=== PATIENT | female | born 1955 | race Caucasian/White ===

== ENCOUNTER 2020-02-14 06:32 | Day surgery (SDC) | payer OTHER, BC ==
[2020-02-12 12:20] LABS: Basophils % 0.4 % (0-1.3); Hematocrit 40.8 % (36.0-45.0); Lymphocytes % 26.8 % (15.3-44.8); RBC Red Blood Cell Count 4.24 M/uL (3.86-4.86)
[2020-02-12 12:23] LABS: Urine Appearance CLEAR; Urine Bilirubin NEGATIVE (NEG); Urine Blood 1+ (NEG); Urine Color YELLOW; Urine Glucose NEGATIVE (NEG); Urine Protein NEGATIVE (NEG); Urine Urobilinogen 0.2 mg/dL (0.2-1.0)
[2020-02-12 12:23] LABS: Protime INR 1.15
[2020-02-12 12:37] LABS: Potassium 3.7 mmol/L (3.5-5.1)
[2020-02-12 13:14] LABS: Urine Microscopic Reflex ORDER UMIC
[2020-02-12 13:41] LABS: Urine Bacteria 20-50 /HPF (<20); Urine Culture Reflex Order REFLEXED; Urine RBC <5 /HPF (NONE SEEN)
--- OUTSIDE RECORDS SUMMARY | 2020-02-14 06:34 | XMS REPORT | Continuity of Care Document ---
:1955 Author Organization [facility] t Address [address] [place] [address] Dr. Ray. [address] [place] [address] Care Team Providers Name Role Phone Unknown Attending Clinician Unavailable Pokaro, [place] Main Attending Clinician Unavailable Problems This patient has no known problems. Allergies, Adverse Reactions, Alerts This patient has no known allergies or adverse reactions. Medications This patient has no known medications. Procedures This patient has no known procedures. Encounters Start End Encounter Admission Attending Care Care Encounter Source Date/Time Date/Time Type Type Clinicians Facility Department ID 2020-01-17 2020-01-17 Hospital Unknown, [facility] [id number] 10:14:00 23:59:00 Encounter Attending Flo [id number] [place] [id number] [place] [id number] 2020-01-17 2020-01-17 Paper Cleaner Zahraa Garrett [facility] [id number] 10:14:48 10:29:48 Visit Lab Main Flo [id number] [place] [id number] [facility] [id number] [address] 2019-07-27 2019-07-27 Outpatient [id number] 12:29:00 12:29:00 Saw vasquez [facility] Results This patient has no known results.
[2020-02-14] MEDS ORDERED: Ringers Lactate 1,000 ML IV ONE (06:45)
[2020-02-14] MEDS ORDERED: HEPARIN 5000 UNIT/ML 1 ML VIAL ONE (06:46)
[2020-02-14] MEDS ORDERED: Levofloxacin500mg IV 500 MG/100 ML BAG IV ONE (06:46)
[2020-02-14] MEDS ORDERED: ROCURONIUM 50 MG/5 ML VIAL IV ONE (07:11)
[2020-02-14] MEDS ORDERED: propofoL 200 MG/20 ML VIAL IV ONE (07:11)
[2020-02-14] MEDS ORDERED: dexAMETHasone 10 MG/ML VIAL ONE (07:11)
[2020-02-14] MEDS ORDERED: FENTANYL CITR 250 MCG/5 ML ONE (07:12)
[2020-02-14] MEDS ORDERED: LIDOCAINE 2% MPF 5 ML VIAL ONE (07:12)
[2020-02-14] MEDS ORDERED: ONDANSETRON 4 MG/2 ML VIAL ONE (07:12)
[2020-02-14] MEDS ORDERED: MIDAZOLAM HCL 2 MG/2 ML INJ ONE (07:12)
[2020-02-14] MEDS ORDERED: NA CHLORIDE 0.9% 1,000 ML ONE (07:33)
[2020-02-14] MEDS ORDERED: LIDOCAINE 1% W/EPI 1:100,000 MDV 20 ML VIAL ONE (07:33)
[2020-02-14] MEDS ORDERED: NA CHLORIDE 0.9% 100 ML IV ONE (07:33)
[2020-02-14] MEDS ORDERED: VASOPRESSIN 20 UNIT/ML VIAL ONE (07:33)
[2020-02-14] MEDS ORDERED: CEFAZOLIN/SWI 1gm 1 GM/10 ML SYR ONE (07:46)
[2020-02-14] MEDS ORDERED: GLYCOPYRROLATE 0.2 MG/ML SYR ONE ×2 (08:24→08:49)
[2020-02-14] MEDS ORDERED: NEOSTIGMINE 1 MG/ML -5 ML ONE (08:49)
[2020-02-14 09:52] VITALS: TEMP 97.4
--- NOTE | 2020-02-14 11:31 | OP ---
Date of Procedure: 02/14/2020 Surgeon: Barbie Mar MD Preoperative Diagnoses: Stress urinary incontinence, history of deep venous thrombosis greater than 1 year ago. Postoperative Diagnoses: Stress urinary incontinence, history of deep venous thrombosis greater than 1 year ago. Procedure Performed: Mid urethral sling obturator approach (TVT-O) and cystoscopy. Anesthesia: General. Specimens: No specimens. Complications: No complications. Drains: Flores catheter. Findings: Mid urethral area unremarkable, very minimal anterior wall prolapse, point BA was -2 and p oint C -5. Description Of Procedure: After informed consent was verified, patient was taken back to the OR, dianna ela in supine fashion on the operating table. Heparin subcu was given to the patient preop. She was instructed to hold off on her anticoagulation 36 hours prior to her surgery. Levaquin 500 mg was given to the patient intravenous. The patient was given general anesthesia, then placed in a dorsal lithotomy position using Stan stirrups. SCDs were placed and started. Time-out was done. Lower abdomen, vulva, vagina, and perineum were prepped and draped in a sterile fashion. Flores was placed to drain the bladder and occluded with a Vanessa and retracted superiorly. The mid u rethral area was identified. Two Allis clamps were placed on either side injected with dilute vasopr essin 10 mL. 1 cm incision was made in this area, then held with 2 Allis clamps on the edges and the dissection created towards the ipsilateral shoulder going underneath the inferior pubic ramus into t he obturator space. Once the obturator membrane was perforated, thus a similar dissection was perfor med on the contralateral side and the space was opened up. I then placed the wing guide and then use d the TVT-O spike to pass on the right side first after getting to the inferior aspect of the inferio r pubic ramus, then hugging the ramus. The spike was turned to exit in the medial thigh area below t he gracilis tendon at least 2 cm lateral to the groin fold slightly above the level of the horizontal line dropped at the level of the external urethral meatus. Similar maneuver was performed on the opposite side. The wing guide was placed without any problems retracing the Pap that was created. Then, the spike was passed. The patient was heavy so the arc of the spike appeared to be slightly tighter for the patient to pass, hugging the inferior pubic ramus exited at the level of the medial side below the gracilis tendon. Then once the exit point was made, the spike was held with Vanessa and the plastic dilator was held with the Vanessa and spike removed hilton larly on both sides. Then, the spikes were cut out after placing the Vanessa on the sheath and the sli ng. Then, tensioning of the sling was performed in the mid urethral area with the help of Metzenbaum scissors and after optimal placement, positioning was ensured. The plastic sheaths were pulled out. As soon as the plastic sheath was pulled out, there was a squirt of blood from the left exit point, pressure was applied for 2 minutes directly here and there was no more bleeding from this area and t here was very minimal bleeding from the sling incision. After thorough irrigation and suction was pe rformed, the incision closure with 3-0 Vicryl in a continuous running-lock fashion was done. Flores w as removed, cystoscopy with 17-Cymro sheath, 30-degree lens, normal saline was done. No evidence of any trauma. No injury of the bladder from the sling placement. No other tumors were seen. The ent uriel bladder was reviewed. Both ureteric orifices were unremarkable. Scope was pulled out after drai sivan the bladder. Flores was replaced. Packing was placed in the vagina. Instrument, needle, and sp onge counts were done and were correct at the end of the case. The patient was recovered from the an esthesia in the OR and taken to the PACU in stable condition. Plan is to keep the Flores for 2 hours, then do a voiding trial with retrograde filling 300 mL, make s ure that packing and Flores are out. If there is any bleeding, we will leave the packing in for 24 ho urs and instruct the patient to pull out. No NSAIDs for this patient and she will restart her blood thinner tomorrow evening in 48 hours if there is no bleeding and no other problems. Early ambulation and all the precautions were given to the patient to call with problems. We will watch for any groi n hematoma or bleeding at the end of the case and the patient was recovered. There was no evidence o f any hematoma here. JOSUE/DIANNA Voice ID: [id number] Report ID: [id number]
[2020-02-14 13:58] VITALS: BP 150/65; O2SAT 96
== END 2020-02-14 12:40 | disposition home or self-care (01) ==
LOC: OR 06:32
PROVIDERS: ATTEND Obstetrics & Gynecology
PROC: 0TSD0ZZ Reposition Urethra, Open Approach (ICD-10-PCS; principal; 2020-02-14 07:30)
DX: N39.3 Stress incontinence (female) (male) (principal); N32.81 Overactive bladder; Z11.59 Encounter for screening for other viral diseases; N95.2 Postmenopausal atrophic vaginitis; I10 Essential (primary) hypertension; E78.00 Pure hypercholesterolemia, unspecified; R41.3 Other amnesia; F41.9 Anxiety disorder, unspecified; F32.9 Major depressive disorder, single episode, unspecified; E66.9 Obesity, unspecified; Z68.37 Body mass index [BMI] 37.0-37.9, adult; M19.90 Unspecified osteoarthritis, unspecified site; E07.9 Disorder of thyroid, unspecified; Z87.891 Personal history of nicotine dependence; Z79.01 Long term (current) use of anticoagulants; Z86.718 Personal history of other venous thrombosis and embolism; Z88.0 Allergy status to penicillin; Z90.49 Acquired absence of other specified parts of digestive tract; Z83.6 Family history of other diseases of the respiratory system; Z82.49 Family history of ischemic heart disease and other diseases of the circulatory system
CPT/HCPCS: 87088; 85025; 87086; 80048; 36415; 86900; 86850; 85610; 86901; 85730; 87077; 87186; 57288; U0002; J2704; J1644; J2250; J3010; J1100; J2710; J0690; J7120; J7030; J2405; 81003; 81015

== ENCOUNTER 2023-08-13 06:12 | Day surgery (SDC) | payer OTHER, BC ==
[2023-08-12 15:56] LABS: Absolute Lymphocytes (CBC) 2.1 K/uL (0.7-4.9); Hematocrit 38.2 % (36.0-45.0); MPV 8.3 fL (7.6-11.3); Platelets 198 thou/uL (152-406); RBC Red Blood Cell Count 3.94 M/uL (3.86-4.86)
[2023-08-12 16:00] LABS: Protime INR 1.02
[2023-08-12 16:03] LABS: Potassium 3.8 mEq/L (3.5-5.1)
[2023-08-13] MEDS ORDERED: Ringers Lactate 1,000 ML IV ONE (06:52)
[2023-08-13] MEDS ORDERED: propofoL 200 MG/20 ML VIAL IV ONE (07:12)
[2023-08-13] MEDS ORDERED: LIDOCAINE 1% MPF 5 ML VIAL ONE (07:12)
[2023-08-13] MEDS ORDERED: GLYCOPYRROLATE 0.2 MG/ML SYR ONE (08:52)
[2023-08-13 09:37] VITALS: BP 128/51; TEMP 97.2; O2SAT 97
--- NOTE | 2023-08-13 15:30 | EKG ---
Test Date: 2023-08-12 Test Time: 16:22:01 Dispatcher Maintenance: TORO MEASUREMENT RESULTS: Intervals: Rate: 62 LA: 156 QRSD: 98 QT: 412 QTc: 418 [place]: P: 71 LA: 156 QRS: -46 T: 18 INTERPRETIVE STATEMENTS: Normal sinus rhythm Left anterior fascicular block Nonspecific T wave abnormality Abnormal ECG No previous ECG available for comparison Electronically Signed On 08-13-23 15:27:31 BLADE BENDER FURNACE TENDER by Richard Mir
== END 2023-08-13 09:38 | disposition home or self-care (01) ==
LOC: OR 06:12
PROVIDERS: ATTEND Surgery
PROC: 0DB38ZX Excision of Lower Esophagus, Via Natural or Artificial Opening Endoscopic, Diagnostic (ICD-10-PCS; 2023-08-13)
PROC: 0DB58ZX Excision of Esophagus, Via Natural or Artificial Opening Endoscopic, Diagnostic (ICD-10-PCS; 2023-08-13)
PROC: 0DBH8ZX Excision of Cecum, Via Natural or Artificial Opening Endoscopic, Diagnostic (ICD-10-PCS; 2023-08-13)
PROC: 0DB98ZX Excision of Duodenum, Via Natural or Artificial Opening Endoscopic, Diagnostic (ICD-10-PCS; principal; 2023-08-13 07:30)
PROC: 0DB68ZX Excision of Stomach, Via Natural or Artificial Opening Endoscopic, Diagnostic (ICD-10-PCS; 2023-08-13 07:30)
DX: Z12.11 Encounter for screening for malignant neoplasm of colon (principal); R10.13 Epigastric pain; R10.31 Right lower quadrant pain; R10.12 Left upper quadrant pain; K29.50 Unspecified chronic gastritis without bleeding; D12.0 Benign neoplasm of cecum; K31.1 Adult hypertrophic pyloric stenosis; K21.00 Gastro-esophageal reflux disease with esophagitis, without bleeding; K29.80 Duodenitis without bleeding; K44.9 Diaphragmatic hernia without obstruction or gangrene; K31.7 Polyp of stomach and duodenum
CPT/HCPCS: 93005; 85025; 80048; 36415; 88312; 85610; 88305; 85730; 43239; 45385; J2704; J2001; J7120

== ENCOUNTER 2023-09-10 06:56 | Day surgery (SDC) | payer OTHER, BC ==
[2023-09-10] MEDS ORDERED: Ringers Lactate 1,000 ML IV ONE (07:20)
[2023-09-10] MEDS ORDERED: LIDOCAINE 1% MPF 5 ML VIAL ONE (07:33)
[2023-09-10] MEDS ORDERED: propofoL 200 MG/20 ML VIAL IV ONE (07:33)
[2023-09-10 09:36] VITALS: BP 154/67; TEMP 97.1; O2SAT 99
== END 2023-09-10 09:10 | disposition home or self-care (01) ==
LOC: OR 06:56
PROVIDERS: ATTEND Surgery
PROC: 0DBH8ZX Excision of Cecum, Via Natural or Artificial Opening Endoscopic, Diagnostic (ICD-10-PCS; principal; 2023-09-10 08:00)
DX: Z12.11 Encounter for screening for malignant neoplasm of colon (principal); R10.31 Right lower quadrant pain; K57.30 Diverticulosis of large intestine without perforation or abscess without bleeding; K64.8 Other hemorrhoids; D12.0 Benign neoplasm of cecum
CPT/HCPCS: 45385; 88305; J2704; J2001; J7120; 88304

== ENCOUNTER 2024-03-20 12:09 | Emergency (ER) | payer OTHER, BC ==
[2024-03-20] MEDS ORDERED: methocarbamoL 500 MG TAB ONE (12:58)
[2024-03-20] MEDS ORDERED: KETOROLAC 30 MG/ML INJ ONE (12:58)
--- NOTE | 2024-03-20 13:18 | RAD REPORT ---
EXAM DESCRIPTION: RAD - Foot Right 3 View - 03/20/2024 12:55 pm CLINICAL HISTORY: Right foot pain FINDINGS: No fracture or dislocation is seen Mild lateral subluxation first proximal phalanx Osteoporosis Large calcaneal spurs
--- NOTE | 2024-03-20 13:19 | RAD REPORT ---
EXAM DESCRIPTION: RAD - Ankle Right 3 View - 03/20/2024 12:55 pm CLINICAL HISTORY: Right ankle pain FINDINGS: No fracture or dislocation is seen. Soft tissue swelling Mild osteoarthritis involves the ankle
--- NOTE | 2024-03-20 13:28 | ER ---
Nurse's Notes [facility] Name: Anna Saavedra Age: 69 yrs Sex: Female : 1955 Arrival Date: 03/20/2024 Time: 12:09 Bed 11 Private MD: Diagnosis: Sprain of ankle Presentation: 03/20 12:31 Chief complaint: Patient states: R leg pain and numbness since sitting on it long hb period of time. Coronavirus screen: Client denies travel out of the [place] in the last 14 days. At this time, the client does not indicate any symptoms associated with coronavirus-19. Ebola Screen: Patient denies travel to an Ebola-affected area in the 21 days before illness onset. Initial Sepsis Screen: Does the patient meet any 2 criteria? No. Patient's initial sepsis screen is negative. Does the patient have a suspected source of infection? No. Patient's initial sepsis screen is negative. Risk Assessment: Do you want to hurt yourself or someone else? Patient reports no desire to harm self or others. Onset of symptoms was March 20, 2024. 12:31 Method Of Arrival: Wheelchair hb 12:31 Acuity: BRANDIE 3 hb Triage Assessment: 12:32 General: Appears uncomfortable, Behavior is calm, cooperative, appropriate for age. hb Pain: Complains of pain in right leg Quality of pain is described as aching. Musculoskeletal: Reports pain in right leg. Injury Description: Bruise. Historical: - Allergies: 12:32 PENICILLINS; hb - PMHx: 12:32 Hypothyroidism; Hypertensive disorder; Hypercholesterolemia; hb - Immunization history:: Adult Immunizations up to date. - Infectious Disease History:: Denies. - Social history:: Smoking status: Patient denies any tobacco usage or history of. Screenin:36 [facility] ED Fall Risk Assessment (Adult) History of falling in the last 3 months, ll1 including since admission Yes- physiologic fall (2 pts) Confusion or Disorientation No (0 pts) Intoxicated or Sedated No (0 pts) Impaired Gait Yes (1 pt) Mobility Assist Device Used Yes (1 pt) Altered Elimination No (0 pt) Score/Fall Risk Level 3 or more points = High Risk Maintained a safe environment, Hourly rounding (assess needs \T\ fall precautionary measures) done. Abuse screen: Denies threats or abuse. Nutritional screening: No deficits noted. Tuberculosis screening: No symptoms or risk factors identified. Assessment: 13:10 Reassessment: No changes from previously documented assessment. Patient and/or family ll1 updated on plan of care and expected duration. Pain level reassessed. Patient is alert, oriented x 3, equal unlabored respirations, skin warm/dry/pink. 13:36 Reassessment: No changes from previously documented assessment. Patient and/or family ll1 updated on plan of care and expected duration. Pain level reassessed. Patient is alert, oriented x 3, equal unlabored respirations, skin warm/dry/pink. 13:37 Musculoskeletal: Circulation, motion, and sensation intact. Capillary refill < 3 ll1 seconds, Reports pain in right foot. Vital Signs: 12:34 BP 140 / 63; Pulse 60; Resp 17; Temp 97.2; Pulse Ox 99% ; Weight 109.77 kg; Height 5 hb ft. 3 in. ; Pain 4/10; 13:36 BP 141 / 61; Pulse 61; Resp 17; Pulse Ox 99% ; Pain 2/10; ll1 12:34 Body Mass Index 42.87 (109.77 kg, 160.02 cm) hb 12:34 Pain Scale: Adult hb 13:36 Pain Scale: Adult ll1 ED Course: 12:21 Patient arrived in ED. bn 12:22 Brijesh Chirinos MD is Attending Physician. ec2 12:32 Triage completed. hb 12:32 Arm band placed on. hb 12:57 Foot Right 3 View XRAY In Process Unspecified. EDMS 12:57 Ankle Right 3 View XRAY In Process Unspecified. EDMS 13:37 Patient has correct armband on for positive identification. Bed in low position. ll1 Provided Education on: return for worsening symptoms. Cardiac monitoring not applicable on this patient. 13:37 No provider procedures requiring assistance completed. Patient did not have IV access ll1 during this emergency room visit. Administered Medications: 13:09 Drug: Ketorolac IM 30 mg IM once Route: IM; Site: left vastus lateralis; ll1 13:36 Follow up: Response: No adverse reaction ll1 13:10 Drug: Methocarbamol PO 500 mg PO once Route: PO; ll1 13:35 Follow up: Response: No adverse reaction ll1 Medication: 13:37 VIS not applicable for this client. ll1 Outcome: 13:27 Discharge ordered by . ec2 13:37 Discharged to home via wheelchair, ll1 13:37 Condition: stable 13:37 Discharge instructions given to patient, Instructed on discharge instructions, follow up and referral plans. no driving heavy equipment, medication usage, Demonstrated understanding of instructions, follow-up care, medications, Prescriptions given X 1, 13:37 Patient left the ED. ll1 Signatures: Dispatcher [employer] EDJeaneth Melgoza RN RN Fermin Araujo RN RN ll1 Brijesh Chirinos MD MD ec2 Ashly Lopez, Reg Reg bn
--- NOTE | 2024-03-20 13:28 | EDPHYS ---
Physician Documentation [facility] Name: Anna Saavedra Age: 69 yrs Sex: Female : 1955 Arrival Date: 03/20/2024 Time: 12:09 Bed 11 Private MD: ED Physician Brijesh Chirinos HPI: 03/20 12:36 This 69 yrs old Female presents to ER via Wheelchair with complaints of Foot ec2 Injury, Fall Injury. 12:36 Patient arrives today for evaluation of right ankle pain. Reports that last night her ec2 foot fell asleep, she attempted to ambulate and now has pain in the right ankle. Reports no other falls injuries or trauma. Patient reports pain isolated to the right ankle and foot. . Historical: - Allergies: 12:32 PENICILLINS; hb - PMHx: 12:32 Hypothyroidism; Hypertensive disorder; Hypercholesterolemia; hb - Immunization history:: Adult Immunizations up to date. - Infectious Disease History:: Denies. - Social history:: Smoking status: Patient denies any tobacco usage or history of. ROS: 12:38 Constitutional: as per hpi ec2 Exam: 12:38 Constitutional: GEN: NAD Head: atraumatic Eyes: EOMI Ears: External ears are ec2 normal. CV: regular rate LUNGS: no respiratory distress ABD: non-distended SKIN: no evidence of rashes MSK: Right ankle with trace swelling noted, TTP to the lateral malleolus. Intact distal neurovascular status. NEURO: moves all extremities equally Vital Signs: 12:34 BP 140 / 63; Pulse 60; Resp 17; Temp 97.2; Pulse Ox 99% ; Weight 109.77 kg; Height 5 hb ft. 3 in. ; Pain 4/10; 13:36 BP 141 / 61; Pulse 61; Resp 17; Pulse Ox 99% ; Pain 2/10; ll1 12:34 Body Mass Index 42.87 (109.77 kg, 160.02 cm) hb 12:34 Pain Scale: Adult hb 13:36 Pain Scale: Adult ll1 MDM: 12:25 Patient medically screened. ec2 12:38 Data reviewed: vital signs. ED course: Patient arrives today for right ankle and foot ec2 pain. Examination remarkable for MSK findings as above. Will obtain radiograph of the right ankle and foot. Differential includes contusion, sprain, fracture.. 13:26 ED course: Foot x-ray shows mild lateral subluxation of the first proximal phalanx, ec2 otherwise no bony fracture, soft tissue swelling noted consistent with ankle sprain. Will discharge home, placed in Ramiro wrap and have the patient follow-up outpatient expectantly. Return precautions given. . 03/20 12:34 Order name: Foot Right 3 View XRAY; Complete Time: 13:26 ec2 03/20 12:34 Order name: Ankle Right 3 View XRAY; Complete Time: 13:26 ec2 03/20 12:34 Order name: Ramiro Wrap; Complete Time: 13:35 ec2 Administered Medications: 13:09 Drug: Ketorolac IM 30 mg IM once Route: IM; Site: left vastus lateralis; ll1 13:36 Follow up: Response: No adverse reaction ll1 13:10 Drug: Methocarbamol PO 500 mg PO once Route: PO; ll1 13:35 Follow up: Response: No adverse reaction ll1 Disposition Summary: 03/20/24 13:27 Discharge Ordered Notes: Location: Home ec2 Condition: Stable ec2 Diagnosis - Sprain of ankle ec2 Followup: ec2 - With: Private Physician - When: - Reason: Re-evaluation by your physician Discharge Instructions: - Discharge Summary Sheet ec2 - Ankle Sprain, [id number] ec2 Forms: - Medication Reconciliation Form ec2 - Antibiotic Education ec2 - Prescription Opioid Use ec2 - Patient Portal Instructions ec2 - Leadership Thank You Letter ec2 Prescriptions: - methocarbamol 500 mg Oral tablet - take 1 tablet ORAL route 4 times per day; 15 tablet; Refills: 0, Product ec2 Selection Permitted Signatures: Dispatcher [employer] EDJeaneth Melgoza RN RN hb Lewis, Lynsay, RN RN ll1 Brijesh Chirinos MD MD ec2 Corrections: (The following items were deleted from the chart) 12:34 12:34 Foot Right 3 View+RAD.RAD.BRZ ordered. EDMS EDMS 12:34 12:34 Ankle Right 3 View+RAD.RAD.BRZ ordered. EDMS EDMS
[2024-03-20 15:55] VITALS: TEMP 97.2; O2SAT 99
[2024-03-20 15:57] VITALS: BP 141/61
== END 2024-03-20 13:37 | disposition home or self-care (01) ==
LOC: ER 12:09
DX: S93.401A Sprain of unspecified ligament of right ankle, initial encounter (principal)
CPT/HCPCS: 96372; 99284

== ENCOUNTER 2024-08-29 22:39 | Emergency (ER) | payer OTHER, BC ==
[2024-08-29] MEDS ORDERED: ONDANSETRON 4 MG (ODT) TAB ONE (23:11)
[2024-08-29] MEDS ORDERED: LIDOCAINE 1% MPF 5 ML VIAL ONE (23:11)
[2024-08-29] MEDS ORDERED: BUPIVACAINE 0.5% PF 10 ML VIAL ONE (23:11)
[2024-08-29] MEDS ORDERED: HYDROCODONE/APAP 7.5/325 MG TAB ONE (23:11)
[2024-08-29] MEDS ORDERED: TDAP (DIPHTH,PERTUSS(ACELL),TET VAC) 0.5 ML VIAL IMVAC ONE (23:12)
--- NOTE | 2024-08-30 00:36 | ER ---
Nurse's Notes [facility] Name: Anna Saavedra Age: 69 yrs Sex: Female : 1955 Arrival Date: 08/29/2024 Time: 22:39 Bed 13 Private MD: Diagnosis: Laceration without foreign body of left index finger with damage to nail Presentation: 08/29 22:57 Chief complaint: Patient states: cut left index finger with quality assurance assistant knife, went through vc1 the nail, did not feel it hit bone. Coronavirus screen: Client denies travel out of the [place] in the last 14 days. At this time, the client does not indicate any symptoms associated with coronavirus-19. Ebola Screen: Patient negative for fever greater than or equal to 101.5 degrees Fahrenheit, and additional compatible Ebola Virus Disease symptoms Patient denies exposure to infectious person. Patient denies travel to an Ebola-affected area in the 21 days before illness onset. No symptoms or risks identified at this time. Initial Sepsis Screen: Does the patient meet any 2 criteria? No. Patient's initial sepsis screen is negative. Does the patient have a suspected source of infection? No. Patient's initial sepsis screen is negative. Risk Assessment: Do you want to hurt yourself or someone else? Patient reports no desire to harm self or others. Onset of symptoms was August 29, 2024. Care prior to arrival: None. Activity prior to arrival: None. 22:57 Method Of Arrival: Ambulatory vc1 22:57 Acuity: BRANDIE 3 vc1 Historical: - Allergies: 22:59 PENICILLINS; vc1 - PMHx: 22:59 Hypercholesterolemia; Hypertensive disorder; Hypothyroidism; vc1 - PSHx: 22:59 None; vc1 - Immunization history:: Client reports having NOT received the Covid vaccine. Last tetanus immunization: unknown, Flu vaccine is not up to date. - Infectious Disease History:: Denies. - Social history:: Smoking status: Patient denies any tobacco usage or history of. Screenin:00 [facility] ED Fall Risk Assessment (Adult) History of falling in the last 3 months, vc1 including since admission No falls in past 3 months (0 pts) Confusion or Disorientation No (0 pts) Intoxicated or Sedated No (0 pts) Impaired Gait No (0 pts) Mobility Assist Device Used No (0 pt) Altered Elimination No (0 pt) Score/Fall Risk Level 0 - 2 = Low Risk Oriented to surroundings, Maintained a safe environment, Educated pt \T\ family on fall prevention, incl call for assistance when getting out of bed. Abuse screen: Denies threats or abuse. Nutritional screening: No deficits noted. Tuberculosis screening: No symptoms or risk factors identified. Assessment: 23:20 Reassessment: Patient and/or family updated on plan of care and expected duration. Pain br2 level reassessed. Patient is alert, oriented x 3, equal unlabored respirations, skin warm/dry/pink. General: Appears uncomfortable, Behavior is calm, cooperative. Pain: Complains of pain in palmar aspect of distal phalanx of left index finger Pain does not radiate. Pain currently is 5 out of 10 on a pain scale. Neuro: Park Agitation-Sedation Scale (RASS): 0 - Alert and Calm Level of Consciousness is awake, alert, obeys commands, Oriented to person, place, time, situation. Musculoskeletal: Capillary refill < 3 seconds, Range of motion: intact in all extremities. Vital Signs: 22:48 BP 169 / 87; Pulse 77; Resp 18; Temp 98.3(O); Pulse Ox 100% on R/A; Weight 110.68 kg; oe Height 5 ft. 5 in. ; 22:48 Body Mass Index 40.60 (110.68 kg, 165.1 cm) oe ED Course: 22:40 Patient arrived in ED. gm2 22:47 Kilo Armstrong PA is PHCP. cp 22:47 Jamie Pascal MD is Attending Physician. cp 22:59 Triage completed. vc1 23:00 Arm band placed on right wrist. vc1 23:00 Patient has correct armband on for positive identification. Bed in low position. Call vc1 light in reach. youth nutritional monitor on. Pulse ox on. NIBP on. 23:05 Rosa M Langston RN is Primary Nurse. br2 23:36 Finger-Thumb Left In Process Unspecified. EDMS 08/30 00:45 Assist provider with laceration repair on left hand using sutures. Set up tray. br2 Performed by Kilo CANELA Dressed with Adaptic, COBAN Patient tolerated well. 00:53 Patient did not have IV access during this emergency room visit. br2 Administered Medications: 08/29 23:17 Drug: Lidocaine Infiltration (1 %) 5 ml 5 ml Infiltration once; to bedside Volume: 5 br2 ml; Route: Infiltration; 08/30 00:30 Follow up: Response: No adverse reaction br2 08/29 23:17 Drug: Bupivacaine Infiltration (0.5 %) 10 ml 10 ml Infiltration once Volume: 10 ml; br2 Route: Infiltration; 08/30 00:30 Follow up: Response: No adverse reaction br2 08/29 23:17 Drug: Ondansetron PO 4 mg PO once Route: PO; br2 08/30 00:30 Follow up: Response: No adverse reaction br2 08/29 23:17 Drug: Hydrocodone-Acetaminophen PO (7.5 mg-325 mg) 1 tabs PO once; RASS on ADMIN: br2 Combtv4, Very Agttd3, Agttd2, Rstlss1, AlertClm0, Drwsy-1, Lt Sdtn-2, Mod Sdtn-3, Dp Sdtn-4, UnArsble-5 Route: PO; 08/30 00:23 Follow up: Response: No adverse reaction br2 08/29 23:18 Drug: Boostrix Tdap IM 0.5 ml IM once; as a single dose Route: IM; Site: right gluteus; br2 08/30 00:30 Follow up: Response: (VIS) Vaccine information sheet provided today. Questions and/or br2 concerns addressed. VIS edition date: Mar 21, 2021.; No adverse reaction Medication: 00:53 Vaccine Information Statement (VIS) provided today. Questions and/or concerns br2 addressed. VIS edition date: March 21, 2021. Outcome: 00:35 Discharge ordered by MD. jalloh 00:53 Discharged to home ambulatory, br2 00:53 Condition: good 00:53 Discharge instructions given to patient, Instructed on discharge instructions, Demonstrated understanding of instructions, follow-up care, medications, wound care, Prescriptions given X 2, 00:53 Patient left the ED. br2 Signatures: Dispatcher [employer] EDMS Kilo Armstrong PA PA cp Espinosa, Orlando oe Calcote, Vanessa, RN RN vc1 Ariana Tobias gm2 Rosa M Langston RN RN br2 Corrections: (The following items were deleted from the chart) 03:24 01:57 Patient left the ED. br2 br2
--- NOTE | 2024-08-30 00:36 | EDPHYS ---
Physician Documentation [facility] Name: Anna Saavedra Age: 69 yrs Sex: Female : 1955 Arrival Date: 08/29/2024 Time: 22:39 Bed 13 Private MD: ED Physician Jamie Pascal HPI: 08/29 23:10 This 69 yrs old Female presents to ER via Ambulatory with complaints of Finger Injury - cp laceration. 23:10 The patient or guardian complains of a laceration, clean. cp 23:10 The complaints affect the distal phalanx of left index finger. 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 Onset: The symptoms/episode began/occurred just prior to arrival. Treatment prior to arrival includes: pressure dressing. Associated signs and symptoms: Pertinent positives: active bleeding, Pertinent negatives: decreased range of motion, numbness. Historical: - Allergies: 22:59 PENICILLINS; vc1 - PMHx: 22:59 Hypercholesterolemia; Hypertensive disorder; Hypothyroidism; vc1 - PSHx: 22:59 None; vc1 - Immunization history:: Client reports having NOT received the Covid vaccine. Last tetanus immunization: unknown, Flu vaccine is not up to date. - Infectious Disease History:: Denies. - Social history:: Smoking status: Patient denies any tobacco usage or history of. ROS: 23:15 MS/extremity: Positive for laceration, of the distal phalanx left index finger, cp 23:15 Constitutional: Negative for fever, cp 23:15 Neuro: Negative for numbness, weakness, 23:15 All other systems are negative, Exam: 23:20 Constitutional: The patient appears in no acute distress, alert, awake, well developed, cp well nourished, obese, uncomfortable, 23:20 Head/Face: Normocephalic, atraumatic. cp 23:20 Chest/axilla: Inspection: normal, 23:20 Cardiovascular: Rate: normal, 23:20 Respiratory: the patient does not display signs of respiratory distress, Respirations: normal, no use of accessory muscles, no retractions, labored breathing, is not present, 23:20 Abdomen/GI: Exam negative for discomfort, distension, guarding, Inspection: abdomen appears normal, 23:20 Musculoskeletal/extremity: Extremities: noted in the distal phalanx radial side of left index finger: pain, laceration that extends through nail, ROM: full active range of motion, in the left index finger, Perfusion: the extremity is normally perfused throughout, Sensation intact. Vital Signs: 22:48 BP 169 / 87; Pulse 77; Resp 18; Temp 98.3(O); Pulse Ox 100% on R/A; Weight 110.68 kg; oe Height 5 ft. 5 in. ; 22:48 Body Mass Index 40.60 (110.68 kg, 165.1 cm) oe Laceration: 08/30 00:35 Wound Repair of 2cm ( 0.8in ) subcutaneous with extension through nail laceration to cp distal phalanx radial side of left index finger. Linear shaped.. moderate bleeding. Distal neuro/vascular/tendon intact. Anesthesia: Digital block administered with 8 mls of Lido/Marcaine. Wound prep: Moderate cleansing by me. Skin closed with 4 5-0 Prolene using interrupted sutures and sterile technique. Dressed with Bacitracin. Patient tolerated well. MDM: 08/29 23:30 Differential diagnosis: dislocation, open fracture, simple laceration, avulsion of skin.cp 08/30 00:35 Medical Screening Exam initiated 00:35 Data reviewed: vital signs, nurses notes, radiologic studies, plain films, and as a cp result, I will discharge patient. 00:35 I considered the following discharge prescriptions or medication management in the emergency department Medications were administered in the Emergency Department. See OCT. 00:35 Care significantly affected by the following chronic conditions: Hypertension, Obesity. cp Counseling: I had a detailed discussion with the patient and/or guardian regarding the historical points, exam findings, and any diagnostic results supporting the discharge/admit diagnosis, radiology results, the need for outpatient follow up, a family practitioner, to return to the emergency department if symptoms worsen or persist or if there are any questions or concerns that arise at home. Response to treatment: the patient's symptoms have markedly improved after treatment, and as a result, I will discharge patient. 08/29 23:36 Order name: Finger-Thumb Left EDMS 08/29 23:02 Order name: Dressing - Wound cp 08/29 23:02 Order name: Gloves, Sterile; Complete Time: 23:18 cp 08/29 23:02 Order name: Setup Suture Tray; Complete Time: 23:18 cp 08/30 00:31 Order name: Wound dressing; Complete Time: 03:26 cp Administered Medications: 08/29 23:17 Drug: Lidocaine Infiltration (1 %) 5 ml 5 ml Infiltration once; to bedside Volume: 5 br2 ml; Route: Infiltration; 08/30 00:30 Follow up: Response: No adverse reaction br2 08/29 23:17 Drug: Bupivacaine Infiltration (0.5 %) 10 ml 10 ml Infiltration once Volume: 10 ml; br2 Route: Infiltration; 08/30 00:30 Follow up: Response: No adverse reaction br2 08/29 23:17 Drug: Ondansetron PO 4 mg PO once Route: PO; br2 08/30 00:30 Follow up: Response: No adverse reaction br2 08/29 23:17 Drug: Hydrocodone-Acetaminophen PO (7.5 mg-325 mg) 1 tabs PO once; RASS on ADMIN: br2 Combtv4, Very Agttd3, Agttd2, Rstlss1, AlertClm0, Drwsy-1, Lt Sdtn-2, Mod Sdtn-3, Dp Sdtn-4, UnArsble-5 Route: PO; 08/30 00:23 Follow up: Response: No adverse reaction br2 08/29 23:18 Drug: Boostrix Tdap IM 0.5 ml IM once; as a single dose Route: IM; Site: right gluteus; br2 08/30 00:30 Follow up: Response: (VIS) Vaccine information sheet provided today. Questions and/or br2 concerns addressed. VIS edition date: Mar 21, 2021.; No adverse reaction Disposition: 08/31 00:02 Chart complete. cp Disposition Summary: 08/30/24 00:35 Discharge Ordered Notes: Location: Home cp Problem: new cp Symptoms: have improved cp Condition: Stable cp Diagnosis - Laceration without foreign body of left index finger with damage to nail cp Followup: cp - With: Private Physician - When: 10 - 14 days - Reason: Staple/Suture removal Discharge Instructions: - Discharge Summary Sheet cp - Laceration Care, Adult cp Forms: - Medication Reconciliation Form cp - Antibiotic Education cp - Prescription Opioid Use cp - Patient Portal Instructions cp - Leadership Thank You Letter cp Prescriptions: - Cephalexin 500 mg Oral Capsule - take 1 capsule ORAL route every 8 hours for 10 days; 30 capsule; Refills: 0, cp Product Selection Permitted - ondansetron 8 mg Oral Tablet,disintegrating - take 1 tablet ORAL route every 12 hours; 20 tablet; Refills: 0, Product cp Selection Permitted Addendum: 07:08 Co-signature as Attending Physician, Jamie Pascal MD I agree with the assessment s p4 and plan of care. I reviewed the patient's care provided by the Advanced Practice Provider and agree with the diagnosis and treatment plan. Signatures: Dispatcher [employer] EDMS Kilo Armstrong PA PA cp Lizzy Trujillo RN RN vc1 Jamie Pascal MD MD sp4 Rosa M Langston RN RN br2 Corrections: (The following items were deleted from the chart) 08/29 23:36 23:02 Finger-Thumb Right+RAD.RAD.BRZ ordered. EDMA EDMS 08/30 22:52 22:51 MS/extremity: Positive for laceration, of the distal phalanx left index finger, cpcp 08/31 00:00 08/30 01:00 Wound Repair of 2cm ( 0.8in ) subcutaneous with extension through nail cp laceration to distal phalanx radial side of left index finger. Linear shaped.. moderate bleeding. Distal neuro/vascular/tendon intact. Anesthesia: Digital block administered with 8 mls of Lido/Marcaine. Wound prep: Moderate cleansing by me. Skin closed with 4 5-0 Prolene using interrupted sutures and sterile technique. Dressed with Bacitracin. Patient tolerated well. cp
--- NOTE | 2024-08-30 06:32 | RAD REPORT ---
EXAM: XR Left Fingers, 2 or More Views CLINICAL HISTORY: The patient is 69 years old and is Female; laceration TECHNIQUE: Frontal, lateral and oblique views of the fingers of the left hand. COMPARISON: No relevant prior studies available. FINDINGS: BONES/JOINTS: The bones are osteopenic. Degenerative change with interphalangeal joint space narr owing is present. No acute fracture. No dislocation. SOFT TISSUES: Unremarkable. No radiopaque foreign body. IMPRESSION: No acute findings in the fingers of the left hand. Electronically signed by: Kerry Ervin MD 08/29/2024 11:53 PM [facility] Due to temporary technical issues with the PACS/Tistagames reporting system, reports are being donna d by the in-house radiologist without review as a courtesy to ensure prompt reporting the interpreting radiologist is fully responsible for the content of the report. Transcribed Date/Time: 08/30/2024 6:32 AM
[2024-09-01 01:53] VITALS: BP 169/87; TEMP 98.3; O2SAT 100
== END 2024-08-30 01:57 | disposition home or self-care (01) ==
LOC: ER 22:39
PROC: 0JQK0ZZ Repair Left Hand Subcutaneous Tissue and Fascia, Open Approach (ICD-10-PCS; principal; 2024-08-30)
DX: S61.311A Laceration without foreign body of left index finger with damage to nail, initial encounter (principal); I10 Essential (primary) hypertension; E03.9 Hypothyroidism, unspecified; E78.00 Pure hypercholesterolemia, unspecified; W26.0XXA Contact with knife, initial encounter; Y93.9 Activity, unspecified; Y92.010 Kitchen of single-family (private) house as the place of occurrence of the external cause; Z88.0 Allergy status to penicillin; Z23 Encounter for immunization
CPT/HCPCS: 73140; 96372; 99285; 12001; Q0162; J2003

== ENCOUNTER 2024-12-08 20:14 | Emergency (ER) | payer OTHER, BC ==
[2024-12-08] MEDS ORDERED: LIDOCAINE 1% 20 ML MDV ONE (20:53)
[2024-12-08] MEDS ORDERED: ONDANSETRON 4 MG (ODT) TAB ONE (20:58)
[2024-12-08] MEDS ORDERED: LIDOCAINE 2% W/EPI 1:200,000 MPF 20 ML VIAL IM ONE (21:45)
--- NOTE | 2024-12-08 22:08 | EDPHYS ---
Physician Documentation [facility] Name: Anna Saavedra Age: 69 yrs Sex: Female : 1955 Arrival Date: 12/08/2024 Time: 20:14 Bed 8 Private MD: ED Physician Earl Lau HPI: 12/08 23:46 This 69 yrs old Female presents to ER via Ambulatory with complaints of Toe dr5 Injury. 23:46 Onset: The symptoms/episode began/occurred acutely. 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 Patient states she is on blood thinners which is likely Xarelto. Historical: - Allergies: 20:27 PENICILLINS; dd2 - PMHx: 20:27 Hypercholesterolemia; Hypertensive disorder; Hypothyroidism; dd2 - PSHx: 20:27 Cholecystectomy; Tonsillectomy; dd2 - Immunization history:: Adult Immunizations up to date, Last tetanus immunization: up to date. - Infectious Disease History:: Denies. - Social history:: Smoking status: Patient/guardian denies using tobacco, the patient reports quitting approximately 7 years ago. ROS: 23:46 Constitutional: as per hpi dr5 Exam: 23:46 Constitutional: As per HPI dr5 23:46 Constitutional: The patient appears in no acute distress, 23:46 Head/face: Exam is negative for acute changes, 12/09 00:13 Neck: Trachea midline, no thyromegaly or masses palpated, and no cervical dr5 lymphadenopathy. Supple, full range of motion without nuchal rigidity, or vertebral point tenderness. No Meningismus. Chest/axilla: Normal chest wall appearance and motion. Nontender with no deformity. No lesions are appreciated. Cardiovascular: Regular rate and rhythm with a normal S1 and S2. Normal PMI, no JVD. No pulse deficits. Respiratory: Lungs have equal breath sounds bilaterally, clear to auscultation. No rales, rhonchi or wheezes noted. No increased work of breathing, no retractions or nasal flaring. Back: No spinal tenderness. No costovertebral tenderness. Full range of motion. Skin: 2cm linear laceration noted to great toe on right foot Neuro: Awake and alert, GCS 15, oriented to person, place, time, and situation. Cranial nerves II-XII grossly intact. Motor strength 5/5 in all extremities. Sensory grossly intact. Cerebellar exam normal. Normal gait. Vital Signs: 12/08 20:20 BP 191 / 71; Pulse 58; Resp 16; Temp 98.4(O); Pulse Ox 99% on R/A; Weight 112.04 kg; dd2 Height 5 ft. 5 in. ; Pain 6/10; 22:30 BP 169 / 70; Pulse 57; Resp 16 S; Pulse Ox 99% on R/A; ha1 20:20 Body Mass Index 41.10 (112.04 kg, 165.1 cm) dd2 20:20 Pain Scale: Adult dd2 Laceration: 12/09 00:13 Wound Repair of 2cm ( 0.8in ) subcutaneous laceration to right first toe. Linear dr5 shaped.. Distal neuro/vascular/tendon intact. Anesthesia: Local anesthetic administered with 1 mls of 1% lidocaine w/ Epi. Wound prep: Simple cleansing by me. Skin closed with 3 4-0 Prolene using simple sutures and sterile technique. Dressed with non-adherent dressing. Patient tolerated well. MDM: 12/08 20:20 Medical Screening Exam initiated dr5 12/09 00:13 Differential diagnosis: abrasion, fracture, laceration. Data reviewed: vital signs, dr5 nurses notes. I considered the following discharge prescriptions or medication management in the emergency department Medications were administered in the Emergency Department. See MAR. Care significantly affected by the following chronic conditions: HTN, Hyperlipidemia, Hypothyroidism. Care significantly affected by the following Social Determinants of Health: Poor access to healthcare and/or lack of insurance, Poor access to transportation, Problems related to employment. Counseling: I had a detailed discussion with the patient and/or guardian regarding the historical points, exam findings, and any diagnostic results supporting the discharge/admit diagnosis, the presence of at least one elevated blood pressure reading (>120/80) during this emergency department visit, the need for outpatient follow up, for definitive care, a family practitioner, to return to the emergency department if symptoms worsen or persist or if there are any questions or concerns that arise at home. ED course: Patient refused x-ray. Placed 3 sutures to help with bleeding. Well-approximated wound after sutures. Will have patient follow-up with primary care doctor and have sutures removed in 10 to 14 days. All questions answered. Bleeding controlled. 12/08 20:29 Order name: Dressing - Wound; Complete Time: 22:24 dr5 12/08 20:29 Order name: Setup Suture Tray; Complete Time: 21:06 dr5 Administered Medications: 12/08 21:06 Drug: Ondansetron Oral Disintegrating Tablet Oral Disintegrating Tablet 4 mg PO once ha1 Route: PO; 22:24 Follow up: Response: No adverse reaction; Marked relief of symptoms ha1 22:00 Drug: Lidocaine-Epinephrine Infiltration -1%: (1:100,000) 20 ml 20 ml Infiltration ha1 once; to bedside {Note: administered by care provider .} Volume: 20 ml; Route: Infiltration; 22:24 Follow up: Response: No adverse reaction ha1 Disposition: 12/09 02:35 I was immediately available on-site in the Emergency Department for consultation in the ms3 care of the patient. Disposition Summary: 12/08/24 22:08 Discharge Ordered Notes: Location: Home dr5 Condition: Stable dr5 Diagnosis - Laceration without foreign body of right great toe without damage to nail dr5 Followup: dr5 - With: Emergency Department - When: As needed - Reason: Worsening of condition Followup: dr5 - With: Private Physician - When: 10 - 14 days - Reason: Recheck today's complaints, Continuance of care, Re-evaluation by your physician Discharge Instructions: - Discharge Summary Sheet dr5 - Laceration Care, Adult dr5 Forms: - Medication Reconciliation Form dr5 - Patient Portal Instructions dr5 - Leadership Thank You Letter dr5 Signatures: Earl Lau DO DO ms3 Yasmine Escobedo RN RN ha1 VILLA MCGHEE RN RN dd2 Mitul Vicente, SHOT MAN-C SHOT MAN-Cdr5
--- NOTE | 2024-12-08 22:08 | ER ---
Nurse's Notes [facility] Name: Anna Saavedra Age: 69 yrs Sex: Female : 1955 Arrival Date: 12/08/2024 Time: 20:14 Bed 8 Private MD: Diagnosis: Laceration without foreign body of right great toe without damage to nail Presentation: 12/08 20:20 Chief complaint: Patient states: WAS CUTTING FABRIC AND DROPPED A ROTARY SAW ON HER RT dd2 GREAT TOE. PT REPORTS TAKING XARELTO. Coronavirus screen: At this time, the client does not indicate any symptoms associated with coronavirus-19. Ebola Screen: No symptoms or risks identified at this time. Initial Sepsis Screen: Does the patient meet any 2 criteria? No. Patient's initial sepsis screen is negative. Does the patient have a suspected source of infection? No. Patient's initial sepsis screen is negative. Risk Assessment: Do you want to hurt yourself or someone else? Patient reports no desire to harm self or others. Onset of symptoms was December 08, 2024. 20:20 Method Of Arrival: Ambulatory dd2 20:20 Acuity: BRANDIE 3 dd2 Triage Assessment: 20:27 General: Appears in no apparent distress. uncomfortable, Behavior is calm, cooperative, dd2 appropriate for age. Pain: Complains of pain in right first toe Pain does not radiate. Pain currently is 6 out of 10 on a pain scale. Derm: Wound noted right first toe Wound is LACERATION. Musculoskeletal: Circulation, motion, and sensation intact. Range of motion: intact in all extremities. Injury Description: Laceration sustained to right first toe is clean, 2.6 to 7.5 cm long, bleeding moderately, moderate bleeding noted at this time. Historical: - Allergies: 20:27 PENICILLINS; dd2 - PMHx: 20:27 Hypercholesterolemia; Hypertensive disorder; Hypothyroidism; dd2 - PSHx: 20:27 Cholecystectomy; Tonsillectomy; dd2 - Immunization history:: Adult Immunizations up to date, Last tetanus immunization: up to date. - Infectious Disease History:: Denies. - Social history:: Smoking status: Patient/guardian denies using tobacco, the patient reports quitting approximately 7 years ago. Screenin:29 [facility] ED Fall Risk Assessment (Adult) History of falling in the last 3 months, ha1 including since admission No falls in past 3 months (0 pts) Confusion or Disorientation No (0 pts) Intoxicated or Sedated No (0 pts) Impaired Gait Yes (1 pt) Mobility Assist Device Used Yes (1 pt) Altered Elimination No (0 pt) Score/Fall Risk Level 3 or more points = High Risk Oriented to surroundings, Maintained a safe environment, Educated pt \T\ family on fall prevention, incl call for assistance when getting out of bed, Hourly rounding (assess needs \T\ fall precautionary measures) done. Abuse screen: Denies threats or abuse. Denies injuries from another. Nutritional screening: No deficits noted. Tuberculosis screening: No symptoms or risk factors identified. Assessment: 21:00 General: Appears uncomfortable, Behavior is cooperative. Pain: Complains of pain in ha1 right first toe Pain currently is 5 out of 10 on a pain scale. Quality of pain is described as aching. Neuro: Level of Consciousness is awake, alert, obeys commands. Cardiovascular: Capillary refill < 3 seconds Patient's skin is warm and dry. Respiratory: Airway is patent Respiratory effort is even, unlabored, Respiratory pattern is regular, symmetrical. Musculoskeletal: Circulation, motion, and sensation intact. Injury Description: Laceration sustained to right first toe is 2.6 to 7.5 cm long. 22:00 Reassessment: Patient and/or family updated on plan of care and expected duration. Pain ha1 level reassessed. Patient is alert, oriented x 3, equal unlabored respirations, skin warm/dry/pink. provided education in wound care and elevated blood pressure. Vital Signs: 20:20 BP 191 / 71; Pulse 58; Resp 16; Temp 98.4(O); Pulse Ox 99% on R/A; Weight 112.04 kg; dd2 Height 5 ft. 5 in. ; Pain 6/10; 22:30 BP 169 / 70; Pulse 57; Resp 16 S; Pulse Ox 99% on R/A; ha1 20:20 Body Mass Index 41.10 (112.04 kg, 165.1 cm) dd2 20:20 Pain Scale: Adult dd2 ED Course: 20:15 Patient arrived in ED. gm2 20:18 Earl Lau DO is Attending Physician. ms3 20:20 [facility] 20:27 Triage completed. dd2 20:27 Arm band placed on right wrist. dd2 20:45 Patient has correct armband on for positive identification. Bed in low position. Call ha1 light in reach. Side rails up X 1. Adult w/ patient. 20:45 Provided Education on: wound care . ha1 20:54 Yasmine Escobedo, RN is Primary Nurse. ha1 22:30 No provider procedures requiring assistance completed. ha1 22:30 Patient did not have IV access during this emergency room visit. ha1 Administered Medications: 21:06 Drug: Ondansetron Oral Disintegrating Tablet Oral Disintegrating Tablet 4 mg PO once ha1 Route: PO; 22:24 Follow up: Response: No adverse reaction; Marked relief of symptoms ha1 22:00 Drug: Lidocaine-Epinephrine Infiltration -1%: (1:100,000) 20 ml 20 ml Infiltration ha1 once; to bedside {Note: administered by care provider .} Volume: 20 ml; Route: Infiltration; 22:24 Follow up: Response: No adverse reaction ha1 Medication: 21:30 VIS not applicable for this client. ha1 Outcome: 22:08 Discharge ordered by . dr5 22:30 Discharged to home ambulatory, with family, ha1 22:30 Condition: stable 22:30 Discharge instructions given to patient, family, Instructed on discharge instructions, follow up and referral plans. wound care, Demonstrated understanding of instructions, follow-up care, wound care, 22:30 Patient left the ED. ha1 Signatures: Earl Lau DO DO ms3 Yasmine Escobedo, RN RN ha1 Ariana Tobias 2 VILLA MCGHEE RN RN dd2 Mitul Vicente, [employer]AGE MEND WORKER-C [employer]AGE MEND WORKER-5 Corrections: (The following items were deleted from the chart) 22:42 22:40 Patient left the ED. ha1 ha1
[2024-12-08 23:59] VITALS: BP 191/71; TEMP 98.4; O2SAT 99
== END 2024-12-08 22:40 | disposition home or self-care (01) ==
LOC: ER 20:14
DX: S91.111A Laceration without foreign body of right great toe without damage to nail, initial encounter (principal)
CPT/HCPCS: 12001; 99283; Q0162; J2003